=== PATIENT | female | born 1960 | race Caucasian/White ===

== ENCOUNTER → 2017-10-07 | Outpatient (CLI) | payer OTHER ==
[~2017-10-07] MED LIST: OMNIPAQUE 350 MG/ML, 50 ML BOTTLE ONE
== END ==
LOC: RAD 12:42
PROVIDERS: ATTEND Family Medicine
DX: R90.82 White matter disease, unspecified (principal); R53.1 Weakness
CPT/HCPCS: 0042T; Q9967

== ENCOUNTER 2019-03-02 14:54 | Outpatient (CLI) | payer OTHER ==
[2019-03-02] MEDS ORDERED: OMNIPAQUE 350 MG/ML, 50 ML BOTTLE ONE (16:24)
== END 2019-03-02 23:59 | disposition home or self-care (01) ==
LOC: RAD 14:54
PROVIDERS: ATTEND Specialist
DX: I63.312 Cerebral infarction due to thrombosis of left middle cerebral artery (principal); G45.8 Other transient cerebral ischemic attacks and related syndromes; G93.89 Other specified disorders of brain; I15.0 Renovascular hypertension
CPT/HCPCS: 0042T; Q9967